=== PATIENT | female | born 1985 | race Caucasian/White ===

== ENCOUNTER 2017-01-11 15:06 | Outpatient (CLI) | payer BC, OTHER ==
[~2017-01-11 15:06] MED LIST: IBUP-1222 PO; OXYC-302 PO; PREN1TAB47 PO
== END 2017-01-11 17:00 | disposition home or self-care (01) ==
LOC: LDOP 15:06
PROVIDERS: ATTEND Obstetrics & Gynecology
DX: O36.8130 Decreased fetal movements, third trimester, not applicable or unspecified (principal); Z3A.37 37 weeks gestation of pregnancy
CPT/HCPCS: 59025; 76819; 99211; G0463

== ENCOUNTER 2017-01-24 18:18 | Outpatient (CLI) | payer BC ==
[~2017-01-24] VITALS: Ht 162.6 cm; Wt 81.8 kg
[2017-01-24 19:30] VITALS: BP 106/61
== END 2017-01-24 20:40 | disposition home or self-care (01) ==
LOC: LDOP 18:18
PROVIDERS: ATTEND Obstetrics & Gynecology
DX: O26.893 Other specified pregnancy related conditions, third trimester (principal); R10.9 Unspecified abdominal pain; Z3A.39 39 weeks gestation of pregnancy
CPT/HCPCS: 59025; 99211; G0463

== ENCOUNTER 2017-01-25 06:17 | Inpatient (IN) | payer BC ==
[~2017-01-25] VITALS: Ht 162.6 cm; Wt 81.8 kg
[2017-01-25] MEDS ORDERED: OXYTOCIN 30U/ 0.9% NaCL 500ML 500 ML IV ONE (06:21)
[2017-01-25] MEDS ORDERED: OXYTOCIN 30U/ 0.9% NaCL 500ML 500 ML IV PRN ×3 (06:21)
[2017-01-25] MEDS: D5%-LACTATED RINGERS 1,000 ML IV SCH ×2 (06:21→14:21)
[2017-01-25] MEDS ORDERED: ONDANSETRON 2MG/ML, 2ML ONE (06:27)
[2017-01-25] MEDS ORDERED: OXYTOCIN 30U/ 0.9% NaCL 500ML 500 ML ONE (06:27)
[2017-01-25] MEDS ORDERED: TERBUTALINE 1 MG/ML, 1ML SQ PRN (06:30)
[2017-01-25] MEDS ORDERED: ALUMINUM/MAG/SIMETHICONE 30 ML UDC PO PRN (06:30)
[2017-01-25] MEDS ORDERED: CALCIUM CARBONATE 500 MG TAB.CHEW PO PRN (06:30)
[2017-01-25] MEDS ORDERED: SODIUM CITRATE/CITRIC ACID 30 ML UDC PO PRN (06:30)
[2017-01-25] MEDS ORDERED: ONDANSETRON 2MG/ML, 2ML IVPush PRN (06:30)
[2017-01-25] MEDS ORDERED: PENICILLIN GK 5,000,000 UNITS in DEXTROSE 5% 100 ML IVPB ONE (06:30)
[2017-01-25] MEDS ORDERED: FENTANYL PF 100 MCG/2ML IV PRN (06:30)
[2017-01-25] MEDS ORDERED: FENTANYL PF 100 MCG/2ML IVPush PRN (06:30)
[2017-01-25] MEDS ORDERED: TERBUTALINE 1 MG/ML, 1ML IVPush PRN ×2 (06:30)
[2017-01-25] MEDS: LACTATED RINGERS 1,000 ML IV SCH ×2 (06:51→10:16)
[2017-01-25 06:52] VITALS: BP 108/56
[2017-01-25] MEDS ORDERED: ACETAMINOPHEN 500 MG TABLET PO PRN (08:00)
[2017-01-25] MEDS ORDERED: ACETAMINOPHEN 325 MG TABLET ONE (08:01)
[2017-01-25] MEDS ORDERED: ACETAMINOPHEN 325 MG TABLET PO ONE (08:30)
[2017-01-25] MEDS: PENICILLIN GK 2,500,000 UNITS in DEXTROSE 5% 100 ML IVPB SCH ×4 (11:45→18:30)
[2017-01-25] MEDS ORDERED: FENTANYL PF 100 MCG/2ML ONE (11:54)
[2017-01-25] MEDS ORDERED: LIDOCAINE/PF 1.5%-EPI 1:200K, 30ML ONE (12:15)
[2017-01-25] MEDS ORDERED: FENTANYL/BUPIV./NS/PF 250 ML EPIDCONT ONE (12:15)
[2017-01-25] MEDS: LACTATED RINGERS 1,000 ML IVBOLUS PRN ×2 (12:16→12:53)
[2017-01-25] MEDS ORDERED: FENTANYL/BUPIV./NS/PF 250 ML EPIDCONT SCH ×2 (12:22→14:32)
[2017-01-25] MEDS ORDERED: LACTATED RINGERS 1,000 ML IV SCH (14:32)
[2017-01-25] MEDS ORDERED: LACTATED RINGERS 1,000 ML IVBOLUS PRN (15:00)
[2017-01-25] MEDS ORDERED: MISOPROSTOL 200 MCG TABLET ONE (18:45)
[2017-01-25] MEDS ORDERED: MISOPROSTOL 200 MCG TABLET PR ONE (19:30)
[2017-01-25] MEDS: OXYTOCIN 30U/ 0.9% NaCL 500ML 500 ML IV SCH (20:32)
[2017-01-25] MEDS ORDERED: IBUPROFEN 600 MG TABLET ONE (20:35)
[2017-01-25] MEDS ORDERED: OXYcodone/APAP 5/325MG TABLET ONE (20:35)
[2017-01-25] MEDS: OXYcodone/APAP 5/325MG TABLET PO PRN (20:38)
[2017-01-25] MEDS: IBUPROFEN 600 MG TABLET PO PRN (20:40)
[2017-01-25 21:20] VITALS: BP 97/64
[2017-01-26] MEDS: IBUPROFEN 600 MG TABLET PO PRN ×3 (02:06→20:31)
[2017-01-26] MEDS: OXYcodone/APAP 5/325MG TABLET PO PRN ×5 (02:06→20:31)
[2017-01-26 02:11] VITALS: BP 105/62
[2017-01-26] MEDS: OXYTOCIN 30U/ 0.9% NaCL 500ML 500 ML IV SCH ×2 (06:32→16:32)
[2017-01-26 07:15] VITALS: BP 106/63
[2017-01-26] MEDS: DOCUSATE 100 MG CAPSULE PO PRN ×2 (08:09→20:31)
[2017-01-26] MEDS ORDERED: PRENATAL VIT/IRON/FA 1 EACH TABLET PO SCH (09:00)
[2017-01-26 12:00] VITALS: BP 103/68
[2017-01-26 16:00] VITALS: BP 112/66
[2017-01-26] MEDS ORDERED: IBUP-1222 PO (18:41)
[2017-01-26] MEDS ORDERED: OXYC-302 PO (18:41)
== END 2017-01-26 20:38 | disposition home or self-care (01) | DRG 774 ==
LOC: LDIP 06:17 → 2NW 21:07
PROVIDERS: ADMIT Obstetrics & Gynecology; ATTEND Obstetrics & Gynecology
PROC: 10E0XZZ Delivery of Products of Conception, External Approach (ICD-10-PCS; principal; 2017-01-25)
PROC: 0KQM0ZZ Repair Perineum Muscle, Open Approach (ICD-10-PCS; 2017-01-25)
PROC: 00HU33Z Insertion of Infusion Device into Spinal Canal, Percutaneous Approach (ICD-10-PCS; 2017-01-25)
PROC: 3E0R3CZ (ICD-10-PCS; 2017-01-25)
DX: O70.1 Second degree perineal laceration during delivery (principal); O72.1 Other immediate postpartum hemorrhage; Z37.0 Single live birth; O99.824 Streptococcus B carrier state complicating childbirth; Z3A.39 39 weeks gestation of pregnancy
CPT/HCPCS: 36415; 85025; 86850; 86900; J2405; J2540; J3010; J2590; J7120

== ENCOUNTER 2018-02-04 05:43 | Day surgery (SDC) | payer OTHER ==
[2018-02-01 08:54] LABS: ALANINE AMINOTRANSFERASE 30 U/L (12-78); ALBUMIN 3.6 g/dL (3.4-5.0); ANION GAP 7 mmol/L (5-15); CALCIUM 8.3 mg/dL (8.5-10.1); CHLORIDE 109 mmol/L (98-107); CREATININE 0.84 mg/dL (0.55-1.02)
[2018-02-01 08:55] LABS: BASOPHILS # (AUTO) 0.05 x10^3/uL (0-0.1); BASOPHILS % (AUTO) 1 % (0-1); EOSINOPHILS # (AUTO) 0.11 x10^3/uL (0-0.4); EOSINOPHILS % (AUTO) 2 % (1-7); LYMPHOCYTES % (AUTO) 32 % (22-44); MD NO; MEAN CORPUSCULAR HEMOGLOBIN 24.9 pg (27.0-34.8); MEAN CORPUSCULAR HGB CONC 32.6 g/dL (32.4-35.8); MEAN CORPUSCULAR VOLUME 76.5 fL (80-100); MEAN PLATELET VOLUME 8.6 fL (7.4-10.4); MONOCYTES % (AUTO) 7 % (2-9); NEUTROPHILS # (AUTO) 4.55 x10^3/uL (1.8-6.8); NEUTROPHILS % (AUTO) 60 % (42-75); PLATELET COUNT 335 x10^3/uL (130-400); RED BLOOD COUNT 4.88 x10^6/uL (3.82-5.3); RED CELL DISTRIBUTION WIDTH 18.7 % (9.6-15.2)
[2018-02-01 08:57] LABS: INTERNATIONAL NORMALIZED RATIO 0.96 (0.93-1.1)
[2018-02-01 08:59] LABS: ALKALINE PHOSPHATASE 111 U/L (45-117); BILIRUBIN,TOTAL 0.6 mg/dL (0.2-1.0); TOTAL PROTEIN 7.9 g/dL (6.4-8.2)
[~2018-02-04] VITALS: Ht 162.6 cm; Wt 78.3 kg
[2018-02-04] MEDS ORDERED: LACTATED RINGERS 1,000 ML IV SCH (06:14)
[2018-02-04] MEDS ORDERED: BUPIVACAINE/PF-EPI 0.25% 1:200K ONE (06:21)
[2018-02-04 06:29] VITALS: BP 111/75
[2018-02-04] MEDS ORDERED: FENTANYL PF 250 MCG/5ML ONE (06:50)
[2018-02-04] MEDS ORDERED: MIDAZOLAM 1 MG/ML, 2ML ONE (06:50)
[2018-02-04] MEDS ORDERED: SCOPOLAMINE PATCH, 1.5MG PATCH.TD72 TD ONE (07:00)
[2018-02-04] MEDS ORDERED: GABAPENTIN 300 MG CAPSULE PO ONE (07:00)
[2018-02-04] MEDS ORDERED: ACETAMINOPHEN 500 MG TABLET PO ONE (07:00)
[2018-02-04] MEDS ORDERED: NEOSTIGMINE 1 MG/ML, 10ML ONE (07:10)
[2018-02-04] MEDS ORDERED: ONDANSETRON 2MG/ML, 2ML ONE (07:10)
[2018-02-04] MEDS ORDERED: LIDOCAINE 4%, 4 ML SYR/CANN TP ONE (07:10)
[2018-02-04] MEDS ORDERED: SUCCINYLCHOLINE 20 MG/ML, 10ML ONE (07:10)
[2018-02-04] MEDS ORDERED: DEXAMETHASONE 4 MG/ML, 1ML ONE (07:10)
[2018-02-04] MEDS ORDERED: GLYCOPYRROLATE 0.2MG/1ML, 5ML ONE (07:10)
[2018-02-04] MEDS ORDERED: ROCURONIUM 10MG/ML,5ML ONE (07:10)
[2018-02-04] MEDS ORDERED: CEFAZOLIN 1,000 MG ONE (07:10)
[2018-02-04] MEDS ORDERED: PROPOFOL 10 MG/ML, 20ML ONE (08:28)
[2018-02-04] MEDS ORDERED: LABETALOL 5MG/ML, 20ML IV PRN (08:30)
[2018-02-04] MEDS ORDERED: OXYcodone 5 MG/5 ML ORAL.SOL UDC PO PRN (08:30)
[2018-02-04] MEDS ORDERED: hydrALAzine 20 MG/ML, 1ML IV PRN (08:30)
[2018-02-04] MEDS ORDERED: ONDANSETRON 2MG/ML, 2ML IV PRN (08:30)
[2018-02-04] MEDS ORDERED: FENTANYL PF 100 MCG/2ML ONE (08:58)
[2018-02-04] MEDS ORDERED: OXYcodone 5 MG/5 ML ORAL.SOL UDC ONE (08:58)
[2018-02-04] MEDS: FENTANYL PF 100 MCG/2ML IV PRN ×2 (09:00→09:16)
[2018-02-04] MEDS ORDERED: MEPERIDINE/PF 50 MG/ML ONE (09:03)
[2018-02-04] MEDS ORDERED: HYDROmorphone 2 MG/ML, 1ML ONE (09:24)
[2018-02-04] MEDS: HYDROmorphone 1 MG/ML, 1ML IV PRN ×2 (09:27→09:37)
[2018-02-04] MEDS ORDERED: MEPERIDINE/PF 25MG/0.5ML IVPush PRN (09:30)
[2018-02-04] MEDS ORDERED: KETOROLAC 30 MG/1 ML IVPush PRN (09:30)
[2018-02-04] MEDS ORDERED: KETOROLAC 30 MG/1 ML ONE (09:31)
[2018-02-04] MEDS ORDERED: OXYcodone/APAP 7.5/325MG TABLET PO ONE (15:30)
== END 2018-02-04 15:45 | disposition home or self-care (01) ==
LOC: OUT 05:43
PROVIDERS: ATTEND Specialist
DX: N94.6 Dysmenorrhea, unspecified (principal); N83.8 Other noninflammatory disorders of ovary, fallopian tube and broad ligament; N94.10 Unspecified dyspareunia; D25.9 Leiomyoma of uterus, unspecified; D64.9 Anemia, unspecified; G43.909 Migraine, unspecified, not intractable, without status migrainosus; Z90.49 Acquired absence of other specified parts of digestive tract; Z98.890 Other specified postprocedural states
CPT/HCPCS: 36415; 58571; 80053; 84703; 85025; 85610; 85730; 86850; 86900; 88307; J0330; J0690; J1100; J1170; J1885; J2175; J2250; J2405; J2704; J2710; J3010; J3490; J7120; S2900

== ENCOUNTER 2018-02-08 16:25 | Emergency (ER) | payer OTHER ==
[~2018-02-08] VITALS: Ht 162.6 cm; Wt 79.2 kg
[2018-02-08 17:50] LABS: BASOPHILS # (AUTO) 0.02 x10^3/uL (0-0.1); BASOPHILS % (AUTO) 0 % (0-1); EOSINOPHILS % (AUTO) 1 % (1-7); LYMPHOCYTES # (AUTO) 1.76 x10^3/uL (1-3.4); LYMPHOCYTES % (AUTO) 24 % (22-44); MD NO; MEAN CORPUSCULAR HEMOGLOBIN 25.4 pg (27.0-34.8); MEAN CORPUSCULAR HGB CONC 33.2 g/dL (32.4-35.8); MEAN CORPUSCULAR VOLUME 76.5 fL (80-100); MEAN PLATELET VOLUME 8.3 fL (7.4-10.4); MONOCYTES # (AUTO) 0.33 x10^3/uL (0.2-0.8); MONOCYTES % (AUTO) 5 % (2-9); NEUTROPHILS # (AUTO) 5.09 x10^3/uL (1.8-6.8); NEUTROPHILS % (AUTO) 70 % (42-75); PLATELET COUNT 360 x10^3/uL (130-400); RED BLOOD COUNT 5.22 x10^6/uL (3.82-5.3); RED CELL DISTRIBUTION WIDTH 18.1 % (9.6-15.2)
[2018-02-08 18:04] LABS: ALANINE AMINOTRANSFERASE 160 U/L (12-78); ALBUMIN 3.8 g/dL (3.4-5.0); ANION GAP 7 mmol/L (5-15); CALCIUM 9.3 mg/dL (8.5-10.1); CHLORIDE 103 mmol/L (98-107); CREATININE 0.78 mg/dL (0.55-1.02)
[2018-02-08 18:08] LABS: ALKALINE PHOSPHATASE 169 U/L (45-117); BILIRUBIN,TOTAL 0.4 mg/dL (0.2-1.0); TOTAL PROTEIN 8.5 g/dL (6.4-8.2); TROPONIN I < 0.015 ng/mL (0.000-0.045)
[2018-02-08] MEDS ORDERED: OMNIPAQUE 350 MG/ML, 100ML BOTTLE ONE (18:34)
[2018-02-08 20:42] VITALS: BP 112/74
== END 2018-02-08 21:40 | disposition home or self-care (01) ==
LOC: ED 21:32
DX: R06.00 Dyspnea, unspecified (principal); J90 Pleural effusion, not elsewhere classified
CPT/HCPCS: 36415; 71045; 71275; 80053; 84484; 85025; 85379; 93005; 99285; Q9967